=== PATIENT | female | born 1990 | race Caucasian/White ===

== ENCOUNTER 2017-11-19 16:40 | Emergency (ER) | payer OTHER, MEDICAID ==
[~2017-11-19] VITALS: Ht 172.7 cm; Wt 59.0 kg
[~2017-11-19 16:40] MED LIST: ACETAMINOPHEN-1 EAC1 PO; AMOXICILLIN 50500 MG PO; AMOXICILLIN500 M1 PO; AZITHROMYCIN 2250 MG PO; BACTRIM DS TAB1 EACH PO; BENADRYL25 MG PO; BENTYL20 MG PO; CARAFATE 1 GM TA1 G1 PO; CIPRO500 MG PO; CIPROFLOXACIN500 M1 PO; CLEOCIN HCL300 MG PO; COLACE100 MG PO; DISKETS40 MG PO; FIORICET 50-301 EACH PO; FLEET ENEMA EX230 ML RC; FLEXERIL PO; FLOMAX0.4 MG PO; FOLIC ACID0.4 MG; GEODON40 MG PO; HYDROCODON-ACE1 EAC7 PO; HYDROCODONE-AP1 EAC6 PO; IBUPROFEN 600600 M1 PO; IBUPROFEN 800800 M1 PO; IBUPROFEN 800800 MG PO; KEFLEX500 MG PO; MAGNESIUM CITR296 ML PO; MIRALAX17 G1 PO; MIRALAX17 GM PO; MUCINEX600 MG PO; NAPROSYN500 M1 PO; NAPROSYN500 MG PO; NOHOMEMEDICATIONS; NORCO 5-325 TA1 EAC1 PO; NORCO 5-325 TA1 EACH PO; ONDANSETRON HCL4 M2 PO; OXYCODONE HCL 55 MG PO; PENICILLIN V P500 MG PO; PENICILLIN VK250 MG PO; PENICILLIN VK500 M1 PO; PERCOCET 5-3251 EACH PO; PERCOCET PO; PHENERGAN 25 MG25 M1 PO; PREDNISONE 20 M20 M1 PO; PREDNISONE 20 M20 MG PO; PRENATAL; PROMETH-CODEIN 65 ML PO; PROMETHAZINE D480 M1 PO; PROMETHAZINE12.5 M1 PO; PYRIDIUM200 MG PO; ROXICODONE5 M2 PO; SERTRALINE HCL50 MG PO; TESSALON PERLE100 MG PO; TUSSID DM SYRU240 ML PO; ULTRAM 50MG TAB50 MG PO; VASERETIC 5-121 EACH PO; VICOPROFEN 2001 EACH PO; XANAX 0.25 MG0.25 MG PO; XANAX 0.5 MG0.5 MG PO; XANAX 1 MG TABLE1 MG PO; XANAX1 MG PO; ZANTAC 150MG T150 MG PO; ZOFRAN ODT4 MG PO; ZOFRAN ODT4 MG SUBLING; ZOFRAN4 MG; ZOFRAN4 MG PO; ZPAK PO; magic mouthwash PO
[2017-11-19] MEDS ORDERED: NORCO 5-325 TA1 EACH PO (17:00)
[2017-11-19] MEDS ORDERED: PENICILLIN V P500 MG PO (17:00)
[2017-11-19 17:07] VITALS: BP 120/71
== END 2017-11-19 17:08 | disposition home or self-care (01) ==
LOC: M.ERS 16:40
DX: K08.89 Other specified disorders of teeth and supporting structures (principal)

== ENCOUNTER 2017-12-08 05:59 | Emergency (ER) | payer OTHER, MEDICAID ==
[~2017-12-08] VITALS: Ht 172.7 cm; Wt 54.4 kg
[2017-12-08] MEDS ORDERED: DIPHENHIST50 MG PO (06:08)
[2017-12-08] MEDS ORDERED: PREDNISONE50 MG PO (06:08)
[2017-12-08 06:30] VITALS: BP 121/82
[2017-12-09] MEDS ORDERED: ELIMITE60 GM TOP (05:23)
[2017-12-09] MEDS ORDERED: BACTRIM DS TAB1 EACH PO (05:23)
== END 2017-12-08 06:31 | disposition home or self-care (01) ==
LOC: M.ERS 05:59
DX: L50.9 Urticaria, unspecified (principal); J30.81 Allergic rhinitis due to animal (cat) (dog) hair and dander; F41.9 Anxiety disorder, unspecified; F17.210 Nicotine dependence, cigarettes, uncomplicated; Z88.6 Allergy status to analgesic agent

== ENCOUNTER 2017-12-09 04:27 | Emergency (ER) | payer OTHER, MEDICAID ==
[~2017-12-09] VITALS: Ht 172.7 cm; Wt 51.3 kg
[~2017-12-09 04:27] MED LIST changes: +DIPHENHIST50 MG PO; +PREDNISONE50 MG PO
[2017-12-09] MEDS ORDERED: BACTRIM DS TAB1 EACH PO (05:23)
[2017-12-09] MEDS ORDERED: ELIMITE60 GM TOP (05:23)
[2017-12-09 05:33] VITALS: BP 127/94
== END 2017-12-09 05:33 | disposition home or self-care (01) ==
LOC: M.ERS 04:27
DX: L73.9 Follicular disorder, unspecified (principal); F41.9 Anxiety disorder, unspecified; F17.200 Nicotine dependence, unspecified, uncomplicated; Z88.6 Allergy status to analgesic agent

== ENCOUNTER 2017-12-18 10:18 | Emergency (ER) | payer OTHER, MEDICAID ==
[~2017-12-18] VITALS: Ht 172.7 cm; Wt 55.8 kg
[~2017-12-18 10:18] MED LIST changes: +ELIMITE60 GM TOP
[2017-12-18 10:25] VITALS: BP 133/80
== END 2017-12-18 16:16 | disposition home or self-care (01) ==
LOC: M.ERS 10:18
DX: Z02.89 Encounter for other administrative examinations (principal)

== ENCOUNTER 2017-12-18 14:30 | Emergency (ER) | payer OTHER, MEDICAID ==
[~2017-12-18] VITALS: Ht 172.7 cm; Wt 55.8 kg
[2017-12-18 15:10] LABS: HEMATOCRIT 39.7 % (37.0-47.0); HEMOGLOBIN 13.8 gm/dL (12.0-15.0); MCH 30.2 pg (26.0-34.0); MCHC 34.8 g/dL (28.0-37.0); MCV 86.7 fL (80.0-100.0); MPV 6.7 fl. (7.2-11.1); RBC 4.57 mil/uL (4.20-5.00); RDW-CV 12.8 % (10.5-14.5); WBC 10.9 thou/uL (4.0-11.0)
[2017-12-18 15:21] LABS: CALCIUM 8.5 mg/dL (8.5-10.1); CREATININE 0.8 mg/dL (0.6-1.3); POTASSIUM 3.6 mmol/L (3.5-5.1)
[2017-12-18 15:26] LABS: ALBUMIN 3.4 g/dL (3.4-5.0); TOTAL BILIRUBIN 0.3 mg/dL (<0.1-1.0); TOTAL PROTEIN 6.4 g/dL (6.4-8.2)
[2017-12-18 15:35] LABS: ALCOHOL < 10 mg/dL (<10); SALICYLATE < 2.8 mg/dL (2.8-20.0)
[2017-12-18 15:36] LABS: ACETAMINOPHEN < 2 ug/mL (10-30)
[2017-12-18 15:56] LABS: URINE BILIRUBIN NEGATIVE (Negative); URINE BLOOD TRACE (Negative); URINE CLARITY CLEAR; URINE COLOR YELLOW; URINE GLUCOSE-RANDOM NEGATIVE (Negative); URINE KETONES NEGATIVE (Negative); URINE LEUKOCYTES NEGATIVE (Negative); URINE NITRITE NEGATIVE (Negative); URINE PROTEIN NEGATIVE (Negative); URINE SPECIFIC GRAVITY 1.025 (1.005-1.030); URINE UROBILINOGEN 0.2 E.U./dl (0.2-1.0)
[2017-12-18 16:04] LABS: AMP/METHAMP POSITIVE (Negative); BARBITURATES Negative (Negative); BENZODIAZEPINES Negative (Negative); COCAINE Negative (Negative); METHADONE Negative (Negative); OPIATES POSITIVE (Negative); PCP Negative (Negative); THC POSITIVE (Negative)
[2017-12-18 16:16] VITALS: BP 115/76
== END 2017-12-18 16:16 | disposition home or self-care (01) ==
LOC: M.ERS 14:30
PROVIDERS: Personal Emergency Response Attendant
DX: Z00.8 Encounter for other general examination (principal); F41.9 Anxiety disorder, unspecified; F17.210 Nicotine dependence, cigarettes, uncomplicated; Z88.8 Allergy status to other drugs, medicaments and biological substances

== ENCOUNTER 2018-03-10 16:28 | Emergency (ER) | payer OTHER, MEDICAID ==
[~2018-03-10] VITALS: Ht 172.7 cm; Wt 57.1 kg
[2018-03-10] MEDS ORDERED: ABILIFY20 MG PO (16:37)
[2018-03-10] MEDS ORDERED: OXCARBAZEPINE300 M1 PO (16:38)
[2018-03-10 17:02] LABS: ABSOLUTE BASOPHILS 0.1 thou/uL (0.0-0.2); ABSOLUTE EOSINOPHILS 0.2 thou/uL (0.0-0.7); ABSOLUTE LYMPHOCYTES 2.1 thou/uL (0.8-5.3); ABSOLUTE MONOCYTES 0.4 thou/uL (0.0-1.2); ABSOLUTE NEUTROPHILS 6.9 thou/uL (1.6-8.1); BASOPHILS 1.1 %; HEMOGLOBIN 14.6 gm/dL (12.0-15.0); LYMPHOCYTES 21.6 %; MCH 30.6 pg (26.0-34.0); MONOCYTES 4.3 %; MPV 6.7 fl. (7.2-11.1); NUCLEATED RBCS 0 /100WBC; PLATELET COUNT* 312 thou/uL (150-400); RBC 4.78 mil/uL (4.20-5.00); RDW-CV 13.7 % (10.5-14.5); WBC 9.7 thou/uL (4.0-11.0)
[2018-03-10 17:10] LABS: CALCIUM 8.9 mg/dL (8.5-10.1); CREATININE 0.7 mg/dL (0.6-1.3)
[2018-03-10 17:14] LABS: URINE BILIRUBIN NEGATIVE (Negative); URINE BLOOD NEGATIVE (Negative); URINE CLARITY SL CLOUDY; URINE COLOR YELLOW; URINE GLUCOSE-RANDOM NEGATIVE (Negative); URINE KETONES NEGATIVE (Negative); URINE LEUKOCYTES-REFLEX NEGATIVE (Negative); URINE NITRITE-REFLEX NEGATIVE (Negative); URINE PROTEIN NEGATIVE (Negative); URINE SPECIFIC GRAVITY 1.015 (1.005-1.030); URINE UROBILINOGEN 0.2 E.U./dl (0.2-1.0)
[2018-03-10 17:15] LABS: ALBUMIN 3.9 g/dL (3.4-5.0); TOTAL BILIRUBIN 0.3 mg/dL (<0.1-1.0); TOTAL PROTEIN 7.3 g/dL (6.4-8.2)
[2018-03-10 17:20] LABS: HYALINE CASTS 0-3 Few /LPF (None Seen); MUCUS 4-6 Moderate strn/LPF (None Seen); SQUAMOUS >10 Many /LPF (0-3)
[2018-03-10 17:21] LABS: AMORPHOUS URATES Moderate /LPF (None Seen)
[2018-03-10 17:22] LABS: AMP/METHAMP Negative (Negative); BACTERIA-REFLEX 1-9 Few /HPF (None Seen); BARBITURATES Negative (Negative); BENZODIAZEPINES Negative (Negative); COCAINE Negative (Negative); METHADONE Negative (Negative); OPIATES Negative (Negative); PCP Negative (Negative); THC Negative (Negative); URINE RBC 0-2 Rare /HPF (0-2); URINE WBC-REFLEX 0-5 Rare /HPF (0-5)
[2018-03-10 17:42] VITALS: BP 119/70
== END 2018-03-10 17:42 | disposition home or self-care (01) ==
LOC: M.ERS 16:28
PROVIDERS: Physician Assistant
DX: R25.1 Tremor, unspecified (principal); F19.20 Other psychoactive substance dependence, uncomplicated; F17.210 Nicotine dependence, cigarettes, uncomplicated; F41.9 Anxiety disorder, unspecified; Z88.8 Allergy status to other drugs, medicaments and biological substances

== ENCOUNTER 2018-03-26 14:50 | Emergency (ER) | payer OTHER, MEDICAID ==
[~2018-03-26] VITALS: Ht 170.2 cm; Wt 57.1 kg
[~2018-03-26 14:50] MED LIST changes: +ABILIFY20 MG PO; +OXCARBAZEPINE300 M1 PO
[2018-03-26] MEDS ORDERED: NEURONTIN 300300 M1 PO (15:04)
[2018-03-26] MEDS ORDERED: SUBOXONE 4 MG-1 EACH SUBLING (15:04)
[2018-03-26 15:20] LABS: ABSOLUTE BASOPHILS 0.1 thou/uL (0.0-0.2); ABSOLUTE EOSINOPHILS 0.2 thou/uL (0.0-0.7); ABSOLUTE LYMPHOCYTES 1.9 thou/uL (0.8-5.3); ABSOLUTE MONOCYTES 0.3 thou/uL (0.0-1.2); ABSOLUTE NEUTROPHILS 3.9 thou/uL (1.6-8.1); BASOPHILS 0.9 %; EOSINOPHILS 3.9 %; HEMATOCRIT 40.6 % (37.0-47.0); HEMOGLOBIN 13.9 gm/dL (12.0-15.0); LYMPHOCYTES 29.1 %; MCH 30.6 pg (26.0-34.0); MCHC 34.3 g/dL (28.0-37.0); MCV 89.2 fL (80.0-100.0); MONOCYTES 4.8 %; MPV 6.9 fl. (7.2-11.1); NUCLEATED RBCS 0 /100WBC; PLATELET COUNT* 162 thou/uL (150-400); POLYS 61.3 %; RBC 4.55 mil/uL (4.20-5.00); RDW-CV 13.4 % (10.5-14.5); WBC 6.4 thou/uL (4.0-11.0)
[2018-03-26 15:37] LABS: CALCIUM 8.4 mg/dL (8.5-10.1); CREATININE 0.6 mg/dL (0.6-1.3); POTASSIUM 3.7 mmol/L (3.5-5.1)
[2018-03-26 15:41] LABS: ALBUMIN 3.4 g/dL (3.4-5.0); TOTAL BILIRUBIN 0.3 mg/dL (<0.1-1.0); TOTAL PROTEIN 6.3 g/dL (6.4-8.2)
[2018-03-26 16:39] VITALS: BP 112/65
== END 2018-03-26 16:39 | disposition home or self-care (01) ==
LOC: M.ERS 14:50
PROVIDERS: Physician Assistant Surgical
DX: R51 Headache (principal); R11.2 Nausea with vomiting, unspecified; F41.9 Anxiety disorder, unspecified; F17.210 Nicotine dependence, cigarettes, uncomplicated; Z88.5 Allergy status to narcotic agent; Z88.6 Allergy status to analgesic agent; Z88.8 Allergy status to other drugs, medicaments and biological substances

== ENCOUNTER 2018-04-06 01:51 | Emergency (ER) | payer OTHER, MEDICAID ==
[~2018-04-06] VITALS: Ht 170.2 cm; Wt 57.1 kg
[~2018-04-06 01:51] MED LIST changes: +NEURONTIN 300300 M1 PO; +SUBOXONE 4 MG-1 EACH SUBLING
[2018-04-06] MEDS ORDERED: VALIUM5 MG PO ×2 (02:01→03:51)
[2018-04-06 02:19] LABS: URINE BILIRUBIN NEGATIVE (Negative); URINE BLOOD 3+ (Negative); URINE CLARITY CLEAR; URINE COLOR DARK YELLOW; URINE GLUCOSE-RANDOM NEGATIVE (Negative); URINE KETONES 1+ (Negative); URINE LEUKOCYTES-REFLEX NEGATIVE (Negative); URINE NITRITE-REFLEX NEGATIVE (Negative); URINE PROTEIN TRACE (Negative); URINE SPECIFIC GRAVITY >= 1.030 (1.005-1.030); URINE UROBILINOGEN 0.2 E.U./dl (0.2-1.0)
[2018-04-06 02:26] LABS: AMP/METHAMP POSITIVE (Negative); BARBITURATES Negative (Negative); BENZODIAZEPINES POSITIVE (Negative); COCAINE Negative (Negative); METHADONE Negative (Negative); OPIATES POSITIVE (Negative); PCP Negative (Negative); THC POSITIVE (Negative)
[2018-04-06 02:37] LABS: ABSOLUTE BASOPHILS 0.1 thou/uL (0.0-0.2); ABSOLUTE EOSINOPHILS 0.2 thou/uL (0.0-0.7); ABSOLUTE LYMPHOCYTES 2.7 thou/uL (0.8-5.3); ABSOLUTE MONOCYTES 0.5 thou/uL (0.0-1.2); ABSOLUTE NEUTROPHILS 6.3 thou/uL (1.6-8.1); BASOPHILS 0.8 %; HEMATOCRIT 46.4 % (37.0-47.0); HEMOGLOBIN 15.7 gm/dL (12.0-15.0); LYMPHOCYTES 27.5 %; MCH 30.2 pg (26.0-34.0); MCHC 33.9 g/dL (28.0-37.0); MCV 89.1 fL (80.0-100.0); MONOCYTES 5.3 %; MPV 7.3 fl. (7.2-11.1); NUCLEATED RBCS 0 /100WBC; PLATELET COUNT* 291 thou/uL (150-400); POLYS 64.4 %; RBC 5.21 mil/uL (4.20-5.00); RDW-CV 13.6 % (10.5-14.5); WBC 9.8 thou/uL (4.0-11.0)
[2018-04-06 02:43] LABS: BACTERIA-REFLEX >30 Many /HPF (None Seen); CRYSTALS None Seen /LPF (None Seen); FINE GRANULAR CASTS 0-3 Few /LPF (None Seen); HYALINE CASTS 4-10 Moderate /LPF (None Seen); MUCUS >6 Heavy strn/LPF (None Seen); SQUAMOUS >10 Many /LPF (0-3); TRANSITIONAL EPITHEL CELL 0-3 Few /LPF (None Seen); URINE RBC >20 Many /HPF (0-2); URINE WBC-REFLEX 6-15 Few /HPF (0-5); WBC CLUMPS Few (None Seen)
[2018-04-06 03:03] LABS: CALCIUM 8.1 mg/dL (8.5-10.1); CREATININE 0.6 mg/dL (0.6-1.3); POTASSIUM 3.2 mmol/L (3.5-5.1)
[2018-04-06 03:08] LABS: ALBUMIN 3.5 g/dL (3.4-5.0); TOTAL BILIRUBIN 0.6 mg/dL (<0.1-1.0); TOTAL PROTEIN 6.5 g/dL (6.4-8.2)
[2018-04-06] MEDS ORDERED: CIPROFLOXACIN500 M1 PO (03:51)
[2018-04-06] MEDS ORDERED: ZOFRAN ODT4 MG PO (03:51)
[2018-04-06 04:01] VITALS: BP 114/74
== END 2018-04-06 04:02 | disposition home or self-care (01) ==
LOC: M.ERS 01:51
PROVIDERS: Emergency Medicine
DX: N39.0 Urinary tract infection, site not specified (principal); F41.9 Anxiety disorder, unspecified; G43.909 Migraine, unspecified, not intractable, without status migrainosus; F17.210 Nicotine dependence, cigarettes, uncomplicated; Z88.5 Allergy status to narcotic agent; Z88.6 Allergy status to analgesic agent

== ENCOUNTER 2018-06-27 17:06 | Emergency (ER) | payer OTHER, MEDICAID ==
[~2018-06-27] VITALS: Ht 170.2 cm; Wt 55.8 kg
[~2018-06-27 17:06] MED LIST changes: +VALIUM5 MG PO
[2018-06-27 17:53] LABS: HEMATOCRIT 39.9 % (37.0-47.0); HEMOGLOBIN 13.5 gm/dL (12.0-15.0); MCHC 33.9 g/dL (28.0-37.0); MCV 82.6 fL (80.0-100.0); MPV 6.8 fl. (7.2-11.1); NUCLEATED RBCS 0 /100WBC; PLATELET COUNT* 173 thou/uL (150-400); RBC 4.83 mil/uL (4.20-5.00); RDW-CV 13.1 % (10.5-14.5); WBC 4.7 thou/uL (4.0-11.0)
[2018-06-27 17:57] LABS: ANION GAP 9 mmol/L (7-16); BUN 9 mg/dL (7-18); CALCIUM 8.5 mg/dL (8.5-10.1); CHLORIDE 100 mmol/L (98-107); CO2 27 mmol/L (21-32); CREATININE 0.7 mg/dL (0.6-1.3); GLUCOSE 113 mg/dL (70-99); POTASSIUM 3.6 mmol/L (3.5-5.1); SODIUM 136 mmol/L (136-145)
[2018-06-27 17:59] LABS: PROTIME 10.7 Seconds (9.20-11.50)
[2018-06-27 18:09] LABS: ALBUMIN 3.4 g/dL (3.4-5.0); ALKALINE PHOSPHATASE 64 U/L (46-116); NT-PRO BRAIN NAT PEPTIDE 19 pg/mL (<300); SGOT 14 U/L (15-37); SGPT 16 U/L (30-65); TOTAL BILIRUBIN 0.4 mg/dL (<0.1-1.0); TOTAL PROTEIN 7.1 g/dL (6.4-8.2); TROPONIN-I LEVEL <0.06 ng/mL (<0.06)
[2018-06-27 18:31] LABS: ABSOLUTE EOSINOPHILS 0.1 thou/uL (0.0-0.7); ABSOLUTE LYMPHOCYTES 0.5 thou/uL (0.8-5.3); ABSOLUTE MONOCYTES 0.3 thou/uL (0.0-1.2); ABSOLUTE NEUTROPHILS 3.7 thou/uL (1.6-8.1)
[2018-06-27 18:33] LABS: INFLUENZA A ANTIGEN None Detected (None Detect); INFLUENZA B ANTIGEN None Detected (None Detect)
[2018-06-27 18:34] LABS: PLATELET ESTIMATE ADEQUATE
[2018-06-27] MEDS ORDERED: PREDNISONE 10 M10 MG PO (19:36)
[2018-06-27] MEDS ORDERED: VENTOLIN HFA 1818 GM INH (19:36)
[2018-06-27 20:15] VITALS: BP 99/60
--- NOTE | 2018-06-28 10:44 | EKG ---
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 <ELECTRONICALLY SIGNED> By: Enoc Rothman MD, [facility] 06/28/18 1044 [id number] Enoc Rothman MD, [facility] /EPI
== END 2018-06-27 20:15 | disposition home or self-care (01) ==
LOC: M.ERS 17:06
PROVIDERS: Physician Assistant
DX: J40 Bronchitis, not specified as acute or chronic (principal); F11.23 Opioid dependence with withdrawal; F41.9 Anxiety disorder, unspecified; G43.909 Migraine, unspecified, not intractable, without status migrainosus; F17.210 Nicotine dependence, cigarettes, uncomplicated; Z88.5 Allergy status to narcotic agent; Z88.6 Allergy status to analgesic agent; Z88.8 Allergy status to other drugs, medicaments and biological substances

== ENCOUNTER 2018-08-18 23:07 | Emergency (ER) | payer OTHER, MEDICAID ==
[~2018-08-18] VITALS: Ht 170.2 cm; Wt 54.4 kg
[~2018-08-18 23:07] MED LIST changes: +PREDNISONE 10 M10 MG PO; +VENTOLIN HFA 1818 GM INH
[2018-08-18 23:20] VITALS: BP 137/91
== END 2018-08-18 23:22 | disposition left against medical advice (07) ==
LOC: M.ERS 23:07
DX: R10.32 Left lower quadrant pain (principal); Z88.8 Allergy status to other drugs, medicaments and biological substances; Z88.5 Allergy status to narcotic agent; Z90.49 Acquired absence of other specified parts of digestive tract

== ENCOUNTER 2019-01-08 08:01 | Emergency (ER) | payer OTHER ==
[~2019-01-08] VITALS: Ht 172.7 cm; Wt 54.4 kg
[2019-01-08] MEDS ORDERED: METHADOSE5 MG PO (08:18)
[2019-01-08] MEDS ORDERED: FLEXERIL PO (08:20)
[2019-01-08] MEDS ORDERED: NORCO 5-325 TA1 EACH PO (08:20)
[2019-01-08] MEDS ORDERED: ZOFRAN ODT4 MG SUBLING (08:49)
[2019-01-08 08:50] VITALS: BP 142/78
== END 2019-01-08 08:52 | disposition home or self-care (01) ==
LOC: M.ERS 08:01
DX: M54.5 Low back pain (principal); F17.210 Nicotine dependence, cigarettes, uncomplicated; Z88.6 Allergy status to analgesic agent; Z88.5 Allergy status to narcotic agent; Z88.8 Allergy status to other drugs, medicaments and biological substances; Z90.49 Acquired absence of other specified parts of digestive tract

== ENCOUNTER 2019-01-29 18:21 | Emergency (ER) | payer OTHER ==
[~2019-01-29] VITALS: Ht 172.7 cm; Wt 54.4 kg
[~2019-01-29 18:21] MED LIST changes: +METHADOSE5 MG PO
[2019-01-29 19:11] LABS: URINE BILIRUBIN NEGATIVE (Negative); URINE BLOOD NEGATIVE (Negative); URINE CLARITY CLEAR; URINE COLOR YELLOW; URINE GLUCOSE-RANDOM NEGATIVE (Negative); URINE KETONES 1+ (Negative); URINE LEUKOCYTES-REFLEX NEGATIVE (Negative); URINE NITRITE-REFLEX NEGATIVE (Negative); URINE PROTEIN NEGATIVE (Negative)
[2019-01-29 19:16] LABS: AMP/METHAMP POSITIVE (Negative); BARBITURATES Negative (Negative); BENZODIAZEPINES Negative (Negative); COCAINE Negative (Negative); METHADONE POSITIVE (Negative); OPIATES POSITIVE (Negative); PCP Negative (Negative); THC Negative (Negative)
[2019-01-29 19:25] LABS: INFLUENZA A ANTIGEN None Detected (None Detect); INFLUENZA B ANTIGEN None Detected (None Detect)
[2019-01-29 20:46] VITALS: BP 148/82
--- NOTE | 2019-01-30 18:20 | EKG ---
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: : 1990 Requested By: Sofia Townsend Order Number: [id number] Graeme MD: Silver Dhillon Measurements Intervals [place] Rate: 119 P: 69 [place]: 165 QRS: 1 QRSD: 103 T: 59 QT: 329 QTc: 463 Interpretive Statements Sinus tachycardia Atrial premature complexes LAE, consider biatrial enlargement Incomplete right bundle-branch block Compared to ECG 06/27/2018 17:42:59 Atrial premature complex(es) now present Electronically Signed On 01-30-2019 18:20:17 CDT by Silver Dhillon [email or web address] <ELECTRONICALLY SIGNED> By: Silver Dhillon MD, [facility] 01/30/19 1820 1844 1844 Silver Dhillon MD, [facility] /EPI
== END 2019-01-29 20:46 | disposition home or self-care (01) ==
LOC: M.ERS 18:21
PROVIDERS: Nurse Practitioner Family
DX: E86.0 Dehydration (principal); R51 Headache; F15.10 Other stimulant abuse, uncomplicated; Z90.49 Acquired absence of other specified parts of digestive tract; F17.210 Nicotine dependence, cigarettes, uncomplicated; Z88.5 Allergy status to narcotic agent; Z88.8 Allergy status to other drugs, medicaments and biological substances

== ENCOUNTER 2019-02-26 06:47 | Emergency (ER) | payer OTHER ==
[~2019-02-26] VITALS: Ht 172.7 cm; Wt 54.4 kg
[2019-02-26] MEDS ORDERED: VALIUM5 MG PO (06:55)
[2019-02-26 07:11] LABS: URINE BILIRUBIN NEGATIVE (Negative); URINE BLOOD NEGATIVE (Negative); URINE CLARITY CLEAR; URINE COLOR YELLOW; URINE GLUCOSE-RANDOM NEGATIVE (Negative); URINE KETONES NEGATIVE (Negative); URINE LEUKOCYTES-REFLEX TRACE (Negative); URINE NITRITE-REFLEX NEGATIVE (Negative); URINE PROTEIN NEGATIVE (Negative)
[2019-02-26 07:21] LABS: BACTERIA-REFLEX 1-9 Few /HPF (None Seen); CASTS None Seen /LPF (None Seen); MUCUS None Seen strn/LPF (None Seen); SQUAMOUS >10 Many /LPF (0-3); URINE RBC 0-2 Rare /HPF (0-2); URINE WBC-REFLEX 0-5 Rare /HPF (0-5)
[2019-02-26 07:22] LABS: CRYSTALS None Seen /LPF (None Seen)
[2019-02-26 07:42] LABS: ABSOLUTE BASOPHILS 0.1 thou/uL (0.0-0.2); ABSOLUTE EOSINOPHILS 0.3 thou/uL (0.0-0.7); ABSOLUTE LYMPHOCYTES 2.3 thou/uL (0.8-5.3); ABSOLUTE MONOCYTES 0.5 thou/uL (0.0-1.2); ABSOLUTE NEUTROPHILS 4.8 thou/uL (1.6-8.1); BASOPHILS 1.2 %; EOSINOPHILS 3.4 %; HEMATOCRIT 35.3 % (37.0-47.0); HEMOGLOBIN 12.2 gm/dL (12.0-15.0); LYMPHOCYTES 28.9 %; MCH 28.3 pg (26.0-34.0); MCHC 34.7 g/dL (28.0-37.0); MCV 81.6 fL (80.0-100.0); MONOCYTES 6.8 %; MPV 6.4 fl. (7.2-11.1); NUCLEATED RBCS 0 /100WBC; PLATELET COUNT* 226 thou/uL (150-400); POLYS 59.7 %; RBC 4.32 mil/uL (4.20-5.00); RDW-CV 13.7 % (10.5-14.5)
[2019-02-26 07:46] LABS: CALCIUM 8.6 mg/dL (8.5-10.1); CREATININE 0.7 mg/dL (0.6-1.3); POTASSIUM 3.5 mmol/L (3.5-5.1)
[2019-02-26 07:51] LABS: ALBUMIN 3.4 g/dL (3.4-5.0); TOTAL BILIRUBIN 0.4 mg/dL (<0.1-1.0); TOTAL PROTEIN 6.7 g/dL (6.4-8.2)
[2019-02-26 08:05] LABS: AMP/METHAMP POSITIVE (Negative); BARBITURATES Negative (Negative); BENZODIAZEPINES POSITIVE (Negative); COCAINE Negative (Negative); METHADONE POSITIVE (Negative); OPIATES POSITIVE (Negative); PCP Negative (Negative); THC POSITIVE (Negative)
[2019-02-26] MEDS ORDERED: CIPROFLOXACIN500 M1 PO (08:20)
[2019-02-26] MEDS ORDERED: TORADOL 10 MG T10 MG PO (08:20)
[2019-02-26 08:24] VITALS: BP 120/70
== END 2019-02-26 08:26 | disposition home or self-care (01) ==
LOC: M.ERS 06:47
PROVIDERS: Emergency Medicine; Personal Emergency Response Attendant
DX: F19.10 Other psychoactive substance abuse, uncomplicated (principal); R10.32 Left lower quadrant pain; Z90.49 Acquired absence of other specified parts of digestive tract; Z88.5 Allergy status to narcotic agent; Z88.8 Allergy status to other drugs, medicaments and biological substances

== ENCOUNTER 2019-04-01 22:04 | Emergency (ER) | payer OTHER ==
[~2019-04-01] VITALS: Ht 170.2 cm; Wt 54.4 kg
[~2019-04-01 22:04] MED LIST changes: +TORADOL 10 MG T10 MG PO
[2019-04-01] MEDS ORDERED: KEFLEX500 M1 PO (22:33)
[2019-04-01] MEDS ORDERED: BACTRIM DS TAB1 EACH PO (22:33)
[2019-04-01 23:05] VITALS: BP 117/79
== END 2019-04-01 23:05 | disposition home or self-care (01) ==
LOC: M.ERS 22:04
DX: L02.512 Cutaneous abscess of left hand (principal); F17.210 Nicotine dependence, cigarettes, uncomplicated; Z90.49 Acquired absence of other specified parts of digestive tract; Z88.6 Allergy status to analgesic agent; Z88.5 Allergy status to narcotic agent

== ENCOUNTER 2019-04-08 15:26 | Emergency (ER) | payer OTHER ==
[~2019-04-08] VITALS: Ht 172.7 cm; Wt 54.4 kg
[~2019-04-08 15:26] MED LIST changes: +KEFLEX500 M1 PO
[2019-04-08 15:36] VITALS: BP 112/70
== END 2019-04-08 15:54 | disposition home or self-care (01) ==
LOC: M.ERS 15:26
DX: L02.414 Cutaneous abscess of left upper limb (principal); F11.23 Opioid dependence with withdrawal; Z48.01 Encounter for change or removal of surgical wound dressing; F17.210 Nicotine dependence, cigarettes, uncomplicated; Z88.5 Allergy status to narcotic agent; Z88.4 Allergy status to anesthetic agent; Z88.6 Allergy status to analgesic agent; Z90.49 Acquired absence of other specified parts of digestive tract

== ENCOUNTER 2019-06-30 20:51 | Emergency (ER) | payer OTHER ==
[~2019-06-30] VITALS: Ht 170.2 cm; Wt 54.4 kg
[2019-06-30] MEDS ORDERED: SUBOXONE 8 MG-1 EAC3 SUBLING (21:09)
[2019-06-30] MEDS ORDERED: BACTRIM DS TAB1 EACH PO (21:40)
[2019-06-30] MEDS ORDERED: KEFLEX500 M1 PO (21:40)
[2019-06-30 22:20] VITALS: BP 127/80
== END 2019-06-30 22:22 | disposition home or self-care (01) ==
LOC: M.ERS 20:51
DX: Z53.21 Procedure and treatment not carried out due to patient leaving prior to being seen by health care provider (principal)

== ENCOUNTER 2019-11-25 12:40 | Emergency (ER) | payer OTHER ==
[~2019-11-25] VITALS: Ht 172.7 cm; Wt 54.4 kg
[~2019-11-25 12:40] MED LIST changes: +SUBOXONE 8 MG-1 EAC3 SUBLING
[2019-11-25] MEDS ORDERED: METHADONE10 MG/1 M2 PO (13:10)
[2019-11-25] MEDS ORDERED: ZANAFLEX4 MG PO (13:28)
[2019-11-25 13:37] VITALS: BP 127/81
== END 2019-11-25 13:39 | disposition home or self-care (01) ==
LOC: M.ERS 12:40
DX: S16.1XXA Strain of muscle, fascia and tendon at neck level, initial encounter (principal); Z48.01 Encounter for change or removal of surgical wound dressing; F17.210 Nicotine dependence, cigarettes, uncomplicated; Z88.6 Allergy status to analgesic agent; Z88.8 Allergy status to other drugs, medicaments and biological substances; Z90.49 Acquired absence of other specified parts of digestive tract

== ENCOUNTER 2021-07-23 08:58 | Emergency (ER) | payer OTHER ==
[~2021-07-23] VITALS: Ht 170.2 cm; Wt 63.5 kg
[~2021-07-23 08:58] MED LIST changes: +METHADONE10 MG/1 M2 PO; +ZANAFLEX4 MG PO
[2021-07-23 09:00] VITALS: BP 110/75
[2021-07-23] MEDS ORDERED: AMOXICILLIN500 M1 PO (09:17)
[2021-07-23] MEDS ORDERED: IBUPROFEN 800800 MG PO (09:17)
== END 2021-07-23 09:30 | disposition home or self-care (01) ==
LOC: M.ERS 08:58
DX: K02.9 Dental caries, unspecified (principal); F17.210 Nicotine dependence, cigarettes, uncomplicated; Z90.49 Acquired absence of other specified parts of digestive tract; Z87.42 Personal history of other diseases of the female genital tract; Z79.899 Other long term (current) drug therapy; Z79.2 Long term (current) use of antibiotics; Z88.5 Allergy status to narcotic agent; Z88.8 Allergy status to other drugs, medicaments and biological substances